=== PATIENT | female | born 1960 | race Caucasian/White ===

== ENCOUNTER 2017-08-04 06:32 | Day surgery (SDC) | payer OTHER ==
[2017-08-04] MEDS ORDERED: LIDOCAINE 100 MG SYRINGE (08:18)
[2017-08-04] MEDS ORDERED: PROPOFOL 40 ML (08:18)
== END 2017-08-04 12:13 | disposition home or self-care (01) ==
LOC: GIL 06:32
DX: Z12.11 Encounter for screening for malignant neoplasm of colon (principal); D12.5 Benign neoplasm of sigmoid colon; K64.4 Residual hemorrhoidal skin tags
CPT/HCPCS: 45380; 88305

== ENCOUNTER 2018-08-08 05:38 | Day surgery (SDC) | payer OTHER ==
[2018-08-08] MEDS ORDERED: BUPIVACAINE 0.5% (SDV) 30 ML INJ (06:55)
[2018-08-08] MEDS ORDERED: POLYMYXIN/BACITRACIN 1L IRRIG (06:55)
[2018-08-08] MEDS ORDERED: CEFAZOLIN 2 GM/50 ML (PMX) 50 ML IVPB (07:00)
[2018-08-08] MEDS: ACETAMINOPHEN 500 MG TAB PO (07:01)
[2018-08-08] MEDS ORDERED: PROPOFOL 40 ML (07:27)
[2018-08-08] MEDS ORDERED: CEFAZOLIN 1 GM INJ (07:27)
[2018-08-08] MEDS ORDERED: GLYCOPYRROLATE 0.4 MG INJ (07:27)
[2018-08-08] MEDS ORDERED: LIDOCAINE 2% (SDV) 5 ML INJ (07:27)
[2018-08-08] MEDS ORDERED: MIDAZOLAM 1 MG/ML 2 ML INJ (07:27)
[2018-08-08] MEDS ORDERED: KETAMINE (50 MG/ML) 10 ML VIAL (07:28)
[2018-08-08] MEDS ORDERED: KETOROLAC 30 MG INJ IV (07:30)
[2018-08-08] MEDS ORDERED: ALBUTEROL 0.083% (NEB) 2.5 MG/3 ML AMP HHN (07:30)
[2018-08-08] MEDS ORDERED: traMADol 50 MG TAB PO (07:30)
[2018-08-08] MEDS ORDERED: LABETALOL HCL 20MG INJ IV (07:30)
[2018-08-08] MEDS ORDERED: ONDANSETRON 4 MG INJ IV (07:30)
[2018-08-08] MEDS ORDERED: EPHEDrine SULFATE 50 MG/5 ML SYG IV (07:30)
[2018-08-08] MEDS ORDERED: DIPHENHYDRAMINE 50 MG INJ IV (07:30)
[2018-08-08] MEDS ORDERED: METOCLOPRAMIDE 10 MG INJ IV (07:30)
[2018-08-08] MEDS: LIDOCAINE 2% (MDV) 20 ML INJ INJ (07:50)
[2018-08-08] MEDS ORDERED: DEXAMETHASONE 4 MG/ML 5 ML INJ ×2 (07:55→09:11)
[2018-08-08] MEDS ORDERED: FAMOTIDINE 20 MG INJ (07:55)
[2018-08-08] MEDS ORDERED: ONDANSETRON 4 MG INJ ×2 (07:55→09:38)
[2018-08-08] MEDS ORDERED: ESMOLOL 10 ML (07:57)
[2018-08-08] MEDS ORDERED: LIDOCAINE 2% (MDV) 20 ML INJ (07:58)
[2018-08-08] MEDS ORDERED: MAGNESIUM SULFATE 1 GM/D5W 100 ML (08:00)
[2018-08-08] MEDS: BUPIVACAINE 0.5% (MPF) 30 ML INJ INJ (08:24)
[2018-08-08] MEDS: POLYMYXIN/BACITRACIN 1L IRRIG IRR (08:25)
[2018-08-08] MEDS ORDERED: ROPIVACAINE 0.5 % 30 ML VIAL (09:11)
[2018-08-08] MEDS ORDERED: LIDOCAINE 1% (MDV) 20 ML INJ (09:11)
== END 2018-08-08 11:04 | disposition home or self-care (01) ==
LOC: SDS 05:38
DX: M21.611 Bunion of right foot (principal); M20.11 Hallux valgus (acquired), right foot
CPT/HCPCS: 28299; 73630; 88304; 88311